=== PATIENT | male | born 1970 | race Asian ===

== ENCOUNTER 2018-05-26 13:27 | Inpatient (IN) | payer OTHER ==
--- OUTSIDE RECORDS SUMMARY | 2018-05-26 13:46 | XMS REPORT | Clinical Summary ---
:1970 Author Organization [facility] Address [address] [place] [id number] Care Team Providers Name Role Phone Sal Bennett MD Primary Care Provider Allergies Active Allergy Reactions Severity Noted Date Comments Penicillins Rash Low 08/26/2016 Current Medications No known medications Active Problems No known active problems Social History Tobacco Use Types Packs/Day Years Used Date Former Smoker Quit: 2004 Alcohol Use Drinks/Week oz/Week Comments No Sex Assigned at Date Recorded Not on file Last Filed Vital Signs Not on file Plan of Treatment Health Maintenance Due Date Last Done Comments INFLUENZA VACCINE 06/08/2018 Results Not on fileafter 05/25/2017 Insurance Payer Benefit Plan / Group Subscriber ID Type Phone Address [employer]NETWORK xxxxxxxxxxx HMO
[2018-05-26] MEDS ORDERED: ACETAMINOPHEN 500 MG TAB PO PRN (14:25)
[2018-05-26] MEDS ORDERED: GUAIFENESIN/DM 5 ML UCUP PO PRN (14:25)
[2018-05-26 14:29] VITALS: BMI 3540.4
[2018-05-26] MEDS: NA CHLORIDE 0.9% 1,000 ML IV SCH (15:23)
[2018-05-26] MEDS: Levofloxacin500mg IV 500 MG/100 ML BAG IV SCH (15:24)
[2018-05-26 15:32] LABS: Absolute Monocytes 0.5 K/uL (0.1-1.3); Absolute Neutrophil 3.8 K/uL (1.8-8.0); Basophils % 0.1 % (0-1.3); Eosinophils % 0.4 % (0-4.4); MCH 28.7 pg (27.0-35.0); MCV 85.3 fL (80-100); MPV 8.6 fL (7.6-11.3); RBC Red Blood Cell Count 5.28 M/uL (4.33-5.43)
[2018-05-26 15:48] LABS: Albumin 3.9 g/dL (3.4-5.0); Bilirubin Total 0.6 mg/dL (0.2-1.0); Magnesium 2.6 mg/dL (1.8-2.4); Potassium 4.1 mmol/L (3.5-5.1); Protein, Total 8.1 g/dL (6.4-8.2)
[2018-05-26 17:30] LABS: Urine Appearance CLEAR; Urine Bilirubin NEGATIVE (NEG); Urine Blood 1+ (NEG); Urine Color YELLOW; Urine Glucose NEGATIVE (NEG); Urine Protein NEGATIVE (NEG); Urine Urobilinogen 0.2 mg/dL (0.2-1.0)
[2018-05-26 17:53] LABS: Urine Bacteria <20 /HPF (NONE SEEN); Urine Culture Reflex Order NOT NEEDED
--- NOTE | 2018-05-26 18:36 | RAD REPORT ---
EXAM DESCRIPTION: RAD - Chest Pa And Lat (2 Views) - 05/26/2018 6:28 pm CLINICAL HISTORY: Shortness of breath Chest pain. COMPARISON: Chest Pa And Lat (2 Views) dated 07/15/2016 FINDINGS: Linear opacities are present in the left lung base associated with a trace amount of pleur al fluid, likely representing pneumonia. The heart is normal in size. No displaced fractures. IMPRESSION: Developing mild left lower lobe pneumonia.
[2018-05-27] MEDS: NA CHLORIDE 0.9% 1,000 ML IV SCH ×4 (00:56→21:08)
--- NOTE | 2018-05-27 03:16 | HP ---
Date of Admission: 05/26/2018 Chief Complaint: Fever, chills, cough, nausea. History Of Present Illness: This is a 48-year-old male patient without any major prior medical probl ems was on his vacation to [place] last week, and past weekend on Wednesday, he was swimming in the ocean while he was there on his vacation. The patient says that during that time, he probably swallowed s ome water and some water might have gone into his lungs. He started getting sick that particular day after this incidence and started to have fever, chills, nausea, cough, and coughing up brownish colo red mucus which also looks bloody at times. Having all these symptoms, he came back to [facility] Wednesday, and considering his symptoms were getting worse, he ended up in the emergency room at [facility]. He was evaluated and was told to have viral infection and was discharged to go home with instruction to take [id number]-[id number] medication for symptomatic relief. Yesterday, he cont acted my office to inform me of all this and he was advised to come and see me, so he came into offic e today. He was not able to drive, so one of his friend actually drove him to my office. Along with all these ongoing symptoms, he also is complaining of generalized body ache, feeling very weak and d rohit when he stands or walks. He feels very tired, his appetite is fair to poor, and today he also n oted that he was confused. When I walked into the exam room today, he appeared extremely weak and sl eepy. After he was evaluated at our office, decision was made to admit him to the hospital. Allergies: TO PENICILLIN, CAUSING RASH. Medications: ProAir inhaler as needed. Review of Systems: Constitutional: As mentioned above. GI: As mentioned above. 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 All other systems reviewed and negative. Social History: Negative for smoking and rarely uses alcohol. Family History: Significant for diabetes, stroke, hypertension. Past Surgical History: Significant for surgery for kidney stones. Past Medical History: Significant for allergic rhinitis. Physical Examination: Vital Signs: When I saw him at our office today, his vital signs included temperature 100.6, respira tory rate 18, pulse rate 92, height 70 inches, weight 182 pounds. His supine blood pressure was 110/ 70, sitting blood pressure 106/70, standing blood pressure 80/60, and his pulse at that time was very weak. General: The patient appears very weak and sleepy, very ill-appearing. HEENT: Head atraumatic, normocephalic. Conjunctivae nonerythematous. Sclerae white. Mouth, dry o ral mucosa. Ears/Nose, no mass, lesion, discharge noted. Neck: Supple. No JVD, lymph nodes, bruit, thyromegaly noted. Lungs: Clear to auscultation. No rhonchi. Some scattered rales present. Not in any respiratory di stress. Bilateral good equal air entry. Heart: Normal heart sounds, no murmur or gallop. Abdomen: Soft, bowel sounds normal. No guarding, rigidity, tenderness, mass, hepatosplenomegaly, dis tention, or bruit noted. Extremities: No leg edema. No calf tenderness. Skin: No rash, ulcer, cellulitis. Lymphatics: No lymph node enlargement in neck, supraclavicular, infraclavicular region. Neuro: No focal neurological deficit. Chest: Unremarkable. External Genitalia: Deferred. Rectal: Deferred. Laboratory Data: White count 5.3, hemoglobin 15.1, platelets 193. Sodium 126, potassium 4.1, chlori de 102, bicarb 28, BUN 9, creatinine 1, glucose 79, lactic acid 1.6. Liver function tests unremarkab le. Procalcitonin less than 0.05. Urinalysis; 2+ ketones, 1+ blood, 10-20 rbc's, less than 5 wbc's, bacteria less than 20. Chest x-ray, left lower lobe pneumonia. Impression: 1.Pneumonia. 2.Volume depletion. 3.Altered mental status. 4.Allergic rhinitis. Plan: We will go ahead and admit the patient to hospital for further evaluation and management of th is problem. The patient is appropriate for inpatient and is expected to spend 2 midnights in hospita l. We will order DVT prophylaxis using SCD. Nebulizer treatment will be ordered. We will start him on empiric antibiotic, IV Levaquin, and IV fluid will be given. Fall precaution was ordered. I rigoberto l see him tomorrow morning for followup. Details and plan of treatment are discussed with the patien t. Blood culture and sputum culture will be ordered. RHODA/MODL Voice ID: [id number]
[2018-05-27] MEDS ORDERED: MAGNESIUM HYDROXIDE 8% 30 ML PO PRN (08:07)
[2018-05-27] MEDS ORDERED: MAGNES/ALUMIN/SIMET 30ML UCUP PO PRN (08:07)
[2018-05-27] MEDS: FAMOTIDINE 20 MG/2 ML VIAL IV SCH ×2 (09:00→21:07)
[2018-05-27] MEDS ORDERED: CEFTRIAXONE 1 GM/NS 50 ML 1 GM/50 ML BAG IV SCH (09:00)
[2018-05-27] MEDS: CEFTRIAXONE/SWI 1gm 1 GM/10 ML SYR IV SCH ×2 (09:01→21:08)
[2018-05-27] MEDS: Levofloxacin500mg IV 500 MG/100 ML BAG IV SCH (15:42)
[2018-05-27] MEDS: ALBUTEROL 2.5 MG/3 ML NEB SOL NEB PRN ×2 (15:53→22:41)
[2018-05-27 16:53] VITALS: O2SAT 95
--- NOTE | 2018-05-27 21:19 | PN ---
Date of Progress Note: 05/27/2018 Subjective: The patient was seen this morning for followup. He was lying in bed, not in distress wh en I saw him this morning. He slept fairly well last night. Still has lot of cough and some wheezin g. His generalized weakness is still significant, but better to smaller extent compared to yesterday . Objective: Vital Signs: Reviewed. HEENT: Unremarkable. Lungs: Bilateral good equal air entry. Presence of some scattered rales in lower lung field, more o n left side than the right side. Heart: Heart sounds normal. Abdomen: Soft, bowel sounds normal. No guarding, rigidity, tenderness, or distention. Extremities: No leg edema. Laboratory Data: Chest x-ray results reviewed. Impression: 1.Pneumonia. 2.Volume depletion. 3.Confusion, resolved. Plan: The patient had significant generalized weakness with volume depletion and some confusion to g o with that yesterday when I saw him at the office prior to this admission. His confusion problem burleson s improved. He still has significant generalized weakness. He still appears much weaker than normal , but little better than yesterday. He has been going to the bathroom, and has not had any fall or i njury, but still feels weaker than normal, but today I have allowed him to ambulate and nursing staff to make sure that he is safe for ambulation and then he can ambulate on his own without any assistan ce. We will continue IV fluid. Blood cultures, sputum culture pending. We will repeat chest x-ray tomorrow and we will repeat blood work tomorrow. We will continue Levaquin, which was started yester day and I will go ahead and add Rocephin 1 g IV piggyback every 12 hours. Details and plan of treatm ent discussed with him. He is complaining of some acid reflux problem. We will go ahead and give hi m IV Pepcid and p.r.n. Maalox and also order milk of magnesia p.r.n. I did call and talk to him this afternoon prior to this dictation and he is actually sounding better than earlier this morning and r eports feeling better this morning. Appetite is still fairly poor. RHODA/MODL Voice ID: [id number] Report ID: [id number]
[2018-05-28 05:11] LABS: Absolute Lymphocytes (CBC) 1.5 K/uL (0.7-4.9); Absolute Monocytes 0.4 K/uL (0.1-1.3); Absolute Neutrophil 1.6 K/uL (1.8-8.0); Basophils % 0.3 % (0-1.3); Eosinophils % 0.7 % (0-4.4); Hematocrit 38.3 % (39.6-49.0); MCH 28.8 pg (27.0-35.0); MCV 83.9 fL (80-100); MPV 8.2 fL (7.6-11.3); Monocytes % 11.7 % (3.3-12.3); RBC Red Blood Cell Count 4.56 M/uL (4.33-5.43)
[2018-05-28 05:21] LABS: Magnesium 2.4 mg/dL (1.8-2.4); Potassium 4.2 mmol/L (3.5-5.1)
[2018-05-28] MEDS: NA CHLORIDE 0.9% 1,000 ML IV SCH ×2 (07:00→09:54)
[2018-05-28] MEDS: CEFTRIAXONE/SWI 1gm 1 GM/10 ML SYR IV SCH ×2 (09:54→20:31)
[2018-05-28] MEDS: FAMOTIDINE 20 MG/2 ML VIAL IV SCH ×2 (09:54→20:31)
[2018-05-28] MEDS: METHYLPREDNISOLONE 40 MG INJ IV SCH ×2 (12:12→17:05)
--- NOTE | 2018-05-28 12:30 | PN ---
Date of Progress Note: 05/28/2018 Subjective: The patient was seen this morning for followup. No new complaints or problems reported by the patient except cough and coughs of still some colored mucus and wheezing. He still gets short of breath with activity. Overall, he has felt better compared to the time of admission, but wheezin g has gotten worse now. Has not had a bowel movement since admission. Appetite is still fair to poo r. Objective: Vital Signs: Reviewed. HEENT: Unremarkable. Lungs: Bilateral equal air entry, but has scattered wheezing all over both lung patton and this is s omething definitely worse and new finding compared to yesterday. He still has little bit rales in th e left lower lung field, which are unchanged, but wheezing in both lung patton. is something new sinc e yesterday. Not using accessory muscles of respiration. Heart: Heart sounds normal. Abdomen: Soft, bowel sounds normal. No guarding, rigidity, tenderness, or distention. Extremities: No leg edema. Laboratory Data: White count 3.6, hemoglobin 13.2, and platelets 170. Sodium 140, potassium 4.2, ch loride 106, bicarb 28, BUN 8, creatinine 1, and glucose 90. Impression: 1.Pneumonia. 2.Acute exacerbation of asthma. Plan: We will continue current antibiotic, which is Levaquin and ceftriaxone. Reduce IV fluid from 125 cc/hour down to 50 cc/hour. We will get repeat chest x-ray done today. The patient has nebulize r treatment, which is ordered p.r.n. yesterday. I asked him to take it 2 times a day around the [facility]. He did use it last night, but he has not taken any nebulizer treatment this morning. I am changi ng it to 3 times a day on a scheduled basis for his nebulizer treatment. I will also start him on So silvia-Medrol 40 mg IV every 8 hours. He has history of allergic rhinitis and from time to time, devon murry did get sinus infection or bronchitis type of symptoms or worsening of allergy symptoms. He does have symptoms of asthma and has used ProAir inhaler in the past on a p.r.n. basis and what I am cherelle id of right now that along with this pneumonia, he is having some exacerbation of his asthma, so we w ill treat accordingly. Ambulation was encouraged and I will see him tomorrow for followup. RHODA/MODL Voice ID: [id number] Report ID: [id number]
--- NOTE | 2018-05-28 12:39 | RAD REPORT ---
EXAM DESCRIPTION: Migel Salinas (2 Views)05/28/2018 11:24 am CLINICAL HISTORY: Cough COMPARISON: May 26 FINDINGS: The left lung base appears clear. The remainder lungs appear clear. The heart is normal s ize IMPRESSION: No acute abnormalities displayed
[2018-05-28] MEDS ORDERED: ALBUTEROL 2.5 MG/3 ML NEB SOL NEB SCH (14:00)
[2018-05-28] MEDS: Levofloxacin500mg IV 500 MG/100 ML BAG IV SCH (15:29)
[2018-05-28] MEDS: ALBUTEROL 2.5 MG/3 ML NEB SOL NEB SCH (20:09)
[2018-05-29] MEDS: METHYLPREDNISOLONE 40 MG INJ IV SCH ×2 (00:37→09:28)
[2018-05-29] MEDS: NA CHLORIDE 0.9% 1,000 ML IV SCH (00:42)
[2018-05-29] MEDS: ALBUTEROL 2.5 MG/3 ML NEB SOL NEB SCH (08:25)
[2018-05-29 08:39] VITALS: BP 124/78; TEMP 97.7
[2018-05-29] MEDS: CEFTRIAXONE/SWI 1gm 1 GM/10 ML SYR IV SCH (09:29)
[2018-05-29] MEDS: FAMOTIDINE 20 MG/2 ML VIAL IV SCH (09:29)
[2018-05-29] MEDS ORDERED: predniSONE 20 MG TAB PO ONE (10:27)
[2018-05-29] MEDS ORDERED: levoFLOXacin 500 MG TAB PO ONE (10:27)
--- NOTE | 2018-05-30 08:14 | DS ---
Date of Discharge: 05/29/2018 Disposition: Discharged to go home. Physical Examination: HEENT Examination: Unremarkable. Lungs: Clear to auscultation. No rhonchi. No rales. No wheezing noted today at all, not in respiratory distress. Heart: Sounds normal. Abdomen: Soft, bowel sounds normal. No guarding, rigidity, tenderness, or distention. Extremities: No leg edema. Laboratory Data: White count upon admission was 5.3, hemoglobin 15.1, platelets 193. Today, white count 3.6, hemoglobin 13.2, and platelets 170. Upon admission, sodium 136, potassium 4.1, chloride 102, bicarb 28, BUN 9, creatinine 1, glucose 79. Liver function tests unremarkable. Procalcitonin less than 0.05. Lactic acid level 1.6. Repeat blood work yesterday; sodium 140 , potassium 4.2, chloride 106, bicarb 28, BUN 8, creatinine 1, glucose 90, and magnesium 2.4. Chest x-ray upon admission had shown left lower lobe pneumonia. Repeat chest x-ray from yesterday showed no evidence of pneumonia. Discharge Medications And Instructions: 1. Continue prior home medications, which is ProAir inhaler that the patient has it at home, take 2 puffs 3 times a day. 2. Levaquin 500 mg p.o. daily for 1 week. 3. Prednisone 10 mg, the patient to take 2 tablets daily for 2 days, then 1 tablet daily for 2 days, then half tablet daily for 2 days, then stop. 4. Follow up at my office next week. Hospital Course: This is a 48-year-old male patient, came into office with complaints of fever, chills, cough, and nausea. Please see dictated H and P for more information. The patient was also noted to be confused when I saw him at the office with all these complaints. After I evaluated him, I was concerned about possibility of pneumonia and volume depletion. His vital signs had shown significant changes with orthostatic with standing blood pressure was 80/60 and supine blood pressure was 110/70. The patient was not steady on his feet, he was assisted in wheelchair, and was managed to get admitted to hospital directly. After he was admitted to the hospital, routine labs were done, chest x-ray was done, and he was started on IV fluid, IV antibiotics, and nebulizer treatment. His condition did improve, but as of yesterday, he started to have significant wheezing in both lungs and he was started on IV steroid, Solu-Medrol 40 mg every 8 hours, and when I saw him today, there was significant improvement in his wheezing, rales, and all those lung findings have completely resolved. He is feeling much better. His appetite has returned and he is ambulating well without any problem. He is afebrile. No nausea. Confusion problem resolved completely. Overall, he is back to his normal self. Sputum culture, blood culture remained negative. Final Diagnoses: 1. Pneumonia. 2. Volume depletion. 3. Altered mental status secondary to above. 4. Allergic rhinitis. 5. Acute exacerbation of asthma. RHODA/MODL Voice ID: [id number] Report ID: [id number]
== END 2018-05-29 10:45 | disposition home or self-care (01) | DRG 194 ==
LOC: 2ND 13:36
PROVIDERS: ADMIT Internal Medicine; ATTEND Internal Medicine
DX: J18.9 Pneumonia, unspecified organism (principal); J45.901 Unspecified asthma with (acute) exacerbation; E86.9 Volume depletion, unspecified; R41.82 Altered mental status, unspecified; I95.1 Orthostatic hypotension; K21.9 Gastro-esophageal reflux disease without esophagitis; Z88.0 Allergy status to penicillin
CPT/HCPCS: 36415; 71046; 80048; 80053; 81001; 83605; 83735; 84145; 85025; 87040; 87070; 87205; 94640; G0103; J0696; J2920; J7030; J7512